=== PATIENT | male | born 1965 | race Caucasian/White ===

== ENCOUNTER 2017-01-24 01:12 | Emergency (ER) | payer OTHER ==
[2017-01-24] MEDS ORDERED: ONDANSETRON 4 MG/2 ML VIAL IVP ONE (01:30)
[2017-01-24] MEDS ORDERED: LORazepam 2 MG/ML INJ IVP ONE (01:30)
[2017-01-24] MEDS ORDERED: ONDANSETRON 4 MG/2 ML VIAL ONE (01:31)
[2017-01-24] MEDS ORDERED: LORazepam 2 MG/ML INJ ONE (01:31)
[2017-01-24] MEDS ORDERED: NS 1,000 ML IV ONE ×2 (01:33→04:12)
[2017-01-24] MEDS ORDERED: PROMETHAZINE HCL 25 MG/ML INJ IVP ONE (01:42)
--- NOTE | 2017-01-24 01:48 | CPEKG ---
Heart Rate: 70 RR Interval: 857 P-R Interval: 148 QRSD Interval: 100 QT Interval: 432 QTC Interval: 467 P [place]: 16 QRS [place]: 60 T Wave [place]: 60 EKG Severity - ABNORMAL ECG - EKG Impression: SINUS RHYTHM EKG Impression: NONSPECIFIC T ABNORMALITIES, ANTERIOR LEADS Electronically Signed By: Aminah Bond 24-Jan-2017 07:19:06
[2017-01-24 01:56] LABS: ALANINE AMINOTRANSFERASE 35 IU/L (21-72); ALBUMIN 4.6 g/dL (3.5-5.0); ALKALINE PHOSPHATASE 109 IU/L (38-126); ANION GAP 17 mEq/L (8-16); ASPARTATE AMINOTRANSFERASE 33 IU/L (17-59); CALCIUM 10.2 mg/dL (8.5-10.4); CARBON DIOXIDE 21 mEq/l (22-31); CHLORIDE 104 mEq/L (97-110); CREATININE 1.2 mg/dL (0.7-1.3); GLOMERULAR FILTRATION RATE > 60; GLUCOSE 324 mg/dL (70-100); POTASSIUM 3.9 mEq/L (3.5-5.2); SODIUM 142 mEq/L (134-144); TOTAL PROTEIN 7.8 g/dL (6.3-8.2)
[2017-01-24 02:00] LABS: % IMMATURE GRANULYOCYTES 0.3 % (0.0-1.1); ABSOLUTE IMMATURE GRANULOCYTES 0.03 10^3/uL (0.00-0.10); ADD DIFF? NO; ADD MORPH? NO; ADD SCAN? NO; ATYPICAL LYMPHOCYTE FLAG 0 (0-99); FRAGMENT RBC FLAG 0 (0-99); HEMATOCRIT 46.6 % (40.0-51.0); HEMOGLOBIN 16.1 g/dL (13.7-17.5); LEFT SHIFT FLG 0 (0-99); LIPEMIA HEMOLYSIS FLAG 90 (0-99); MEAN CELL HEMOGLOBIN 28.3 pg (27.9-34.1); MEAN CELL HEMOGLOBIN CONCENTR. 34.5 g/dL (32.4-36.7); MEAN PLATELET VOLUME 11.8 fL (8.7-11.7); PLATELET CLUMPS FLAG 0 (0-99); PLATELET COUNT 188 10^3/uL (150-400); RED BLOOD CELL COUNT 5.68 10^6/uL (4.40-6.38); RED CELL DISTRIBUTION WIDTH 12.6 % (11.5-15.2)
--- NOTE | 2017-01-24 02:04 | EDPHY ---
H & P Stated Complaint: n/v, pain in abd, chest, back - some chronic some acute, anxiety Time Seen by Provider: 01/24/17 01:29 HPI/ROS: HPI The patient presents with vomiting which has been present for the last 3 days though became worse tonight. He has had multiple episodes of nonbloody nonbilious emesis throughout the last 3 days. He has been treating this at home with benzodiazepines and Zofran as well as hot showers. This has helped his symptoms. However, tonight there was a problem with his plumbing and he has run out of hot water so could not take a shower and his symptoms got worse. He has had multiple episodes of this and his symptoms are thought to be related to cyclic vomiting versus diabetic gastroparesis verses cannabinoid hyperemesis syndrome. He is using THC currently to manage his chronic shoulder pain from a rotator cuff injury. His glucoses have been in the 300 at home he says. He does have pain throughout his abdomen and chest which she attributes to the vomiting. REVIEW OF SYSTEMS Constitutional: No fever, no chills. Eyes: No discharge. ENT: No sore throat. Cardiovascular: No chest pain, no palpitations. Respiratory: No cough, no shortness of breath. Gastrointestinal: See HPI Genitourinary: No hematuria. Musculoskeletal: No back pain. Skin: No rashes. Neurological: No headache. PMHx: Insulin-dependent diabetes, status post CABG, prior rotator cuff injury Soc Hx: Lives at home with his PHYSICAL General Appearance: Alert, actively retching Eyes: Pupils equal and round no pallor or injection ENT, Mouth: Mucous membranes moist Respiratory: There are no retractions, lungs are clear to auscultation Cardiovascular: Regular rate and rhythm Gastrointestinal: Abdomen is soft and non-tender, no masses, bowel sounds normal Neurological: A&O, moves all extremities Skin: Warm and dry, no rashes Musculoskeletal: Neck is supple non tender Extremities: symmetrical, full range of motion Psychiatric: Patient is oriented X 3, there is no agitation Source: Patient, Old records Exam Limitations: No limitations - Personal History Current Tetanus/Diphtheria Vaccine: Yes Tetanus Vaccine Date: 07/26/2013 - Medical/Surgical History Hx Asthma: No Hx Chronic Respiratory Disease: No Hx Diabetes: Yes Hx Cardiac Disease: Yes Hx Renal Disease: No Hx Cirrhosis: No Hx Alcoholism: No Hx HIV/AIDS: No Hx Splenectomy or Spleen Trauma: No Other PMH: PMHx: gastroparesis, IDDM. PSHx: TRIPLE BYPASS, Shoulder surgery L - Social History Smoking Status: Former smoker Constitutional: Initial Vital Signs Temperature (C) 35.7 C L 01/24/17 01:16 Heart Rate 86 01/24/17 01:16 Respiratory Rate 22 H 01/24/17 01:16 Blood Pressure 139/92 H 01/24/17 01:16 O2 Sat (%) 100 01/24/17 01:16 O2 Delivery Mode Room Air Allergies/Adverse Reactions: shellfish derived Allergy (Verified 01/24/17 01:14) Home Medications: Medication Instructions Recorded Humalog 01/14/16 Lantus 100 UNITS/ML (*) 01/14/16 Phenergan 01/14/16 SIMVASTATIN 01/14/16 LORazepam [Ativan] 1 mg PO Q6-8PRN PRN #10 tab 01/15/16 Valium 01/24/17 Medical Decision Making Differential Diagnosis: This is a 51-year-old male with diabetes on insulin, CAD status post CABG, history of recurrent vomiting approximately once every 6 weeks who presents with 3 days of symptoms which became worse tonight. He has been treating himself at home with benzodiazepines and Zofran as well as warm showers. He has a plumbing problem at his house and has not been able to take a warm shower tonight which may have exacerbated his symptoms. On exam, he appears slightly dehydrated with a benign abdominal exam. Differential diagnosis includes diabetic gastroparesis, cyclic vomiting syndrome , cannabinoid hyperemesis syndrome, ACS, DKA. In the ER, the patient was given IV fluids for his vomiting. He was given Ativan and Phenergan with improvement in his symptoms. He was allowed to take a warm shower. This has all made him feel better. Labs were checked and did reveal hyperglycemia without evidence of DKA. He then sat down and began to feel more nauseated. I have written for an additional L of fluid, Reglan, Haldol. He was able to sleep after this. I anticipate he will be discharged home once he awakes. - Data Points Laboratory Results: Laboratory Results 01/24/17 01:25 01/24/17 01:25 01/24/17 01/24/17 01:25 01:25 WBC 9.39 10^3/uL 10^3/uL (3.80-9.50) RBC 5.68 10^6/uL 10^6/uL (4.40-6.38) Hgb 16.1 g/dL g/dL (13.7-17.5) Hct 46.6 % % (40.0-51.0) MCV 82.0 fL fL (81.5-99.8) MCH 28.3 pg pg (27.9-34.1) MCHC 34.5 g/dL g/dL (32.4-36.7) RDW 12.6 % % (11.5-15.2) Plt Count 188 10^3/uL 10^3/uL (150-400) MPV 11.8 fL H fL (8.7-11.7) Neut % (Auto) 67.0 % % (39.3-74.2) Lymph % (Auto) 22.2 % % (15.0-45.0) [place] % (Auto) 8.7 % % (4.5-13.0) Eos % (Auto) 1.1 % % (0.6-7.6) Baso % (Auto) 0.7 % % (0.3-1.7) Nucleat RBC Rel Count 0.0 % % (0.0-0.2) Absolute Neuts (auto) 6.29 10^3/uL 10^3/uL (1.70-6.50) Absolute Lymphs (auto) 2.08 10^3/uL 10^3/uL (1.00-3.00) Absolute Monos (auto) 0.82 10^3/uL H 10^3/uL (0.30-0.80) Absolute Eos (auto) 0.10 10^3/uL 10^3/uL (0.03-0.40) Absolute Basos (auto) 0.07 10^3/uL 10^3/uL (0.02-0.10) Absolute Nucleated RBC 0.00 10^3/uL 10^3/uL (0-0.01) Immature Gran % 0.3 % % (0.0-1.1) Immature Gran # 0.03 10^3/uL 10^3/uL (0.00-0.10) Sodium 142 mEq/L mEq/L (134-144) Potassium 3.9 mEq/L mEq/L (3.5-5.2) Chloride 104 mEq/L mEq/L (97-110) Carbon Dioxide 21 mEq/l L mEq/l (22-31) Anion Gap 17 mEq/L H mEq/L (8-16) BUN 19 mg/dL mg/dL (7-23) Creatinine 1.2 mg/dL mg/dL (0.7-1.3) Estimated GFR > 60 Glucose 324 mg/dL H mg/dL (70-100) Calcium 10.2 mg/dL mg/dL (8.5-10.4) Total Bilirubin 1.0 mg/dL mg/dL (0.1-1.4) AST 33 IU/L IU/L (17-59) ALT 35 IU/L IU/L (21-72) Alkaline Phosphatase 109 IU/L IU/L (38-126) Troponin I < 0.012 ng/mL ng/mL (0-0.034) Total Protein 7.8 g/dL g/dL (6.3-8.2) Albumin 4.6 g/dL g/dL (3.5-5.0) Medications Given: Discontinued Medications Haloperidol Lactate (Haldol Injection) 2.5 mg IVP EDNOW ONE Stop: 01/24/17 04:12 Last Admin: 01/24/17 04:23 Dose: 2.5 mg Sodium Chloride (Ns) 1,000 mls @ 0 mls/hr IV ONCE ONE; Wide Open PRN Reason: Protocol Stop: 01/24/17 01:34 Last Admin: 01/24/17 01:34 Dose: 1,000 mls Sodium Chloride (Ns) 1,000 mls @ 0 mls/hr IV ONCE ONE; Wide Open PRN Reason: Protocol Stop: 01/24/17 04:13 Last Admin: 01/24/17 04:22 Dose: 1,000 mls Lorazepam (Ativan Injection) 1 mg IVP EDNOW ONE Stop: 01/24/17 01:31 Last Admin: 01/24/17 01:35 Dose: 1 mg Metoclopramide HCl (Reglan Injection) 10 mg IVP EDNOW ONE Stop: 01/24/17 04:12 Last Admin: 01/24/17 04:23 Dose: 10 mg Ondansetron HCl (Zofran) 4 mg IVP EDNOW ONE Stop: 01/24/17 01:31 Last Admin: 01/24/17 01:35 Dose: 4 mg Promethazine HCl (Phenergan) 12.5 mg IVP ONCE ONE Stop: 01/24/17 01:43 Last Admin: 01/24/17 01:48 Dose: 12.5 mg Departure - Departure Disposition: Home, Routine, Self-Care Clinical Impression: Hyperglycemia due to type 1 diabetes mellitus Vomiting Qualifiers: Vomiting type: unspecified Vomiting Intractability: non-intractable Nausea presence: with nausea Qualified Code(s): R11.2 - Nausea with vomiting, unspecified Condition: Good Instructions: Acute Nausea and Vomiting (ED) Additional Instructions: Please follow-up with your primary care physician in the next 1-2 days. Referrals: NONE *PRIMARY CARE P,. [Primary Care Provider] - As per Instructions
[2017-01-24 02:07] LABS: TROPONIN I < 0.012 ng/mL (0-0.034)
[2017-01-24] MEDS ORDERED: HALOPERIDOL LACT 5 MG/ML INJ IVP ONE (04:11)
[2017-01-24] MEDS ORDERED: METOCLOPRAMIDE 10 MG/2 ML VIAL IVP ONE (04:11)
[2017-01-24] MEDS ORDERED: HALOPERIDOL LACT 5 MG/ML INJ ONE (04:12)
[2017-01-24] MEDS ORDERED: METOCLOPRAMIDE 10 MG/2 ML VIAL ONE (04:12)
[2017-01-24 05:24] VITALS: RESP 18
[2017-01-24 07:44] VITALS: BP 113/73; PULSE 96; TEMP 98.2; O2SAT 96
== END 2017-01-24 07:48 | disposition home or self-care (01) ==
DX: R11.2 Nausea with vomiting, unspecified (principal); E10.65 Type 1 diabetes mellitus with hyperglycemia; E86.9 Volume depletion, unspecified; Z95.5 Presence of coronary angioplasty implant and graft; Z87.891 Personal history of nicotine dependence
CPT/HCPCS: 96374; J2060; J2405; J2550; J2765

== ENCOUNTER 2017-01-26 07:32 | Emergency (ER) | payer OTHER ==
[2017-01-26 07:37] VITALS: TEMP 97.5
[2017-01-26] MEDS ORDERED: NS 1,000 ML IV ONE ×2 (07:54→09:18)
[2017-01-26] MEDS ORDERED: LORazepam 2 MG/ML INJ IVP ONE (07:55)
--- NOTE | 2017-01-26 08:06 | EDPHY ---
H & P Time Seen by Provider: 01/26/17 07:46 HPI/ROS: CHIEF COMPLAINT: Persistent vomiting HISTORY OF PRESENT ILLNESS: 51-year-old male with history of diabetes and cyclic vomiting syndrome presents with persistent vomiting. He was seen in this emergency department 4 days ago for persistent vomiting and was given Haldol, Ativan and Reglan IV with relief and vomiting. This morning he awoke with recurrent vomiting and dry heaves. No associated abdominal pain. He tookValium 2.5 mg orally, but he vomited immediately after.Typical of his usual cyclic vomiting syndrome. REVIEW OF SYSTEMS: complete 10 point review of systems negative except as mentioned in the HPI. Past Medical/Surgical History: Diabetes cyclic vomiting syndrome Coronary artery disease Social History: self employed Smoking Status: Former smoker Physical Exam: General Appearance: Alert, pleasantAnd talkative Eyes: Pupils equal and round, no conjunctival pallor or injection ENT, Mouth: Mucous membranes moist Neck: Normal inspection Respiratory: Lungs are clear to auscultation Cardiovascular: Regular rate and rhythm Gastrointestinal: Abdomen is soft and nontender Neurological: A&O, nonfocal, normal gait Skin: Warm and dry, no rash Extremities: Nontender, no pedal edema Psychiatric: anxious Constitutional: Initial Vital Signs Temperature (C) 36.4 C 01/26/17 07:33 Heart Rate 73 01/26/17 07:33 Respiratory Rate 18 01/26/17 07:33 Blood Pressure 170/82 H 01/26/17 07:33 O2 Sat (%) 99 01/26/17 07:33 O2 Delivery Mode Room Air Allergies/Adverse Reactions: shellfish derived Allergy (Verified 01/26/17 07:33) Home Medications: Medication Instructions Recorded Humalog 01/14/16 Lantus 100 UNITS/ML (*) 01/14/16 Phenergan 01/14/16 SIMVASTATIN 01/14/16 LORazepam [Ativan] 1 mg PO Q6-8PRN PRN #10 tab 01/15/16 Valium 01/24/17 Medical Decision Making ED Course/Re-evaluation: This patient presents with persistent vomiting, typical of cyclic vomiting syndrome versus gastroparesis. IV normal saline 1 L and Ativan 1 mg IV given. 9:30 a.m.-I reassessed this patient. He states that he continues to have dry heaves, but would like to go home. I encouraged him to stay for further medication and further IV fluids, however he refuses. I feel that this is somewhat unusual as it took quite a while to get an IV placed in this patient and he has only had 200 mL of normal saline. He also states that he does not feel better after IV Ativan. I reviewed his laboratory tests with him and the possibility of early DKA. He does not feel that he is in DKA and refuses IV insulin or further evaluation. He is not upset, but simply thinks that he can manage his symptoms at home at this point. He has multiple medications for vomiting at home, including Ativan. Abdomen is soft and nontender. 10am-now requests more medications for nausea. Haldol 2.5 mg IV and Reglan 10 mg IV given. 11:00 a.m.-feels better and would like to home. Abdomen is soft and nontender. Differential Diagnosis: Differential diagnosis includes though it is not limited to DKA, appendicitis, cholecystitis, diverticulitis, pyelonephritis, bowel perforation, small bowel obstruction. - Data Points Laboratory Results: Laboratory Results 01/26/17 08:47 01/26/17 08:47 01/26/17 01/26/17 08:47 08:47 WBC 7.82 10^3/uL 10^3/uL (3.80-9.50) RBC 5.55 10^6/uL 10^6/uL (4.40-6.38) Hgb 16.0 g/dL g/dL (13.7-17.5) Hct 45.2 % % (40.0-51.0) MCV 81.4 fL L fL (81.5-99.8) MCH 28.8 pg pg (27.9-34.1) MCHC 35.4 g/dL g/dL (32.4-36.7) RDW 12.5 % % (11.5-15.2) Plt Count 151 10^3/uL 10^3/uL (150-400) MPV 11.7 fL fL (8.7-11.7) Neut % (Auto) 77.7 % H % (39.3-74.2) Lymph % (Auto) 14.2 % L % (15.0-45.0) [place] % (Auto) 6.4 % % (4.5-13.0) Eos % (Auto) 0.5 % L % (0.6-7.6) Baso % (Auto) 0.8 % % (0.3-1.7) Nucleat RBC Rel Count 0.0 % % (0.0-0.2) Absolute Neuts (auto) 6.08 10^3/uL 10^3/uL (1.70-6.50) Absolute Lymphs (auto) 1.11 10^3/uL 10^3/uL (1.00-3.00) Absolute Monos (auto) 0.50 10^3/uL 10^3/uL (0.30-0.80) Absolute Eos (auto) 0.04 10^3/uL 10^3/uL (0.03-0.40) Absolute Basos (auto) 0.06 10^3/uL 10^3/uL (0.02-0.10) Absolute Nucleated RBC 0.00 10^3/uL 10^3/uL (0-0.01) Immature Gran % 0.4 % % (0.0-1.1) Immature Gran # 0.03 10^3/uL 10^3/uL (0.00-0.10) Sodium 137 mEq/L mEq/L (134-144) Potassium 4.0 mEq/L mEq/L (3.5-5.2) Chloride 99 mEq/L mEq/L (97-110) Carbon Dioxide 20 mEq/l L mEq/l (22-31) Anion Gap 18 mEq/L H mEq/L (8-16) BUN 10 mg/dL mg/dL (7-23) Creatinine 0.9 mg/dL mg/dL (0.7-1.3) Estimated GFR > 60 Glucose 323 mg/dL H mg/dL (70-100) Calcium 9.9 mg/dL mg/dL (8.5-10.4) Medications Given: Discontinued Medications Haloperidol Lactate (Haldol Injection) 2.5 mg IVP EDNOW ONE Stop: 01/26/17 10:09 Last Admin: 01/26/17 10:18 Dose: 2.5 mg Sodium Chloride (Ns) 1,000 mls @ 0 mls/hr IV EDNOW ONE; Wide Open PRN Reason: Protocol Stop: 01/26/17 07:55 Last Admin: 01/26/17 09:05 Dose: 1,000 mls Sodium Chloride (Ns) 1,000 mls @ 0 mls/hr IV ONCE ONE; Wide Open PRN Reason: Protocol Stop: 01/26/17 09:19 Last Admin: 01/26/17 09:38 Dose: Not Given Lorazepam (Ativan Injection) 1 mg IVP EDNOW ONE Stop: 01/26/17 07:56 Last Admin: 01/26/17 09:05 Dose: 1 mg Metoclopramide HCl (Reglan Injection) 10 mg IVP EDNOW ONE Stop: 01/26/17 10:10 Last Admin: 01/26/17 10:17 Dose: 10 mg Olanzapine (Zyprexa Zydis) 5 mg PO EDNOW ONE Stop: 01/26/17 08:33 Last Admin: 01/26/17 08:38 Dose: 5 mg Departure - Departure Disposition: Home, Routine, Self-Care Clinical Impression: Cyclic vomiting syndrome Qualifiers: Vomiting Intractability: non-intractable Nausea presence: with nausea Qualified Code(s): G43.A0 - Cyclical vomiting, not intractable Condition: Good Instructions: Acute Nausea and Vomiting (ED) Additional Instructions: Clear liquids today. Advance diet as tolerated. Your blood pressure is running high today. Have this rechecked when you are feeling better. Return with any concerns. Referrals: Emmy Christie MD [[facility] [place] Primary Care Provider] - 2-3 days, call for appt.
[2017-01-26] MEDS ORDERED: OLANZapine DISINTEGR 5 MG TAB PO ONE (08:32)
[2017-01-26 08:59] LABS: % IMMATURE GRANULYOCYTES 0.4 % (0.0-1.1); ABSOLUTE IMMATURE GRANULOCYTES 0.03 10^3/uL (0.00-0.10); ADD DIFF? NO; ADD MORPH? NO; ADD SCAN? NO; ATYPICAL LYMPHOCYTE FLAG 0 (0-99); FRAGMENT RBC FLAG 0 (0-99); HEMATOCRIT 45.2 % (40.0-51.0); LEFT SHIFT FLG 0 (0-99); LIPEMIA HEMOLYSIS FLAG 90 (0-99); MEAN CELL HEMOGLOBIN 28.8 pg (27.9-34.1); MEAN CELL HEMOGLOBIN CONCENTR. 35.4 g/dL (32.4-36.7); MEAN CELL VOLUME 81.4 fL (81.5-99.8); MEAN PLATELET VOLUME 11.7 fL (8.7-11.7); PLATELET CLUMPS FLAG 0 (0-99); PLATELET COUNT 151 10^3/uL (150-400); RED BLOOD CELL COUNT 5.55 10^6/uL (4.40-6.38); RED CELL DISTRIBUTION WIDTH 12.5 % (11.5-15.2)
[2017-01-26 09:14] LABS: ANION GAP 18 mEq/L (8-16); CALCIUM 9.9 mg/dL (8.5-10.4); CARBON DIOXIDE 20 mEq/l (22-31); CHLORIDE 99 mEq/L (97-110); CREATININE 0.9 mg/dL (0.7-1.3); GLOMERULAR FILTRATION RATE > 60; GLUCOSE 323 mg/dL (70-100); SODIUM 137 mEq/L (134-144)
[2017-01-26] MEDS ORDERED: HALOPERIDOL LACT 5 MG/ML INJ IVP ONE (10:08)
[2017-01-26] MEDS ORDERED: METOCLOPRAMIDE 10 MG/2 ML VIAL IVP ONE (10:09)
[2017-01-26 11:25] VITALS: BP 116/69; PULSE 74; RESP 16; O2SAT 96
== END 2017-01-26 11:31 | disposition home or self-care (01) ==
DX: G43.A0 Cyclical vomiting, in migraine, not intractable (principal); E11.9 Type 2 diabetes mellitus without complications; I25.10 Atherosclerotic heart disease of native coronary artery without angina pectoris; E86.9 Volume depletion, unspecified; Z79.4 Long term (current) use of insulin; Z87.891 Personal history of nicotine dependence
CPT/HCPCS: 96374; J2060; J2765